=== PATIENT | male | born 1965 | race Caucasian/White ===

== ENCOUNTER 2017-11-10 07:28 | Emergency (ER) | payer OTHER ==
[~2017-11-10] VITALS: Ht 182.9 cm; Wt 113.4 kg
[~2017-11-10 07:28] MED LIST: ASPIRIN EC325 M1 PO; FISH OIL 1,001000 M1 PO; IBUPROFEN; REQUIP PO; SORINE 80 MG TA80 M1 PO; WELLBUTRIN PO
[2017-11-10 07:34] VITALS: BP 114/70
[2017-11-10] MEDS ORDERED: CHOLESTEROL MED (07:38)
[2017-11-10] MEDS ORDERED: HTN MED (07:39)
[2017-11-10] MEDS ORDERED: MEDROLDOSEPACK PO (07:49)
[2017-11-10] MEDS ORDERED: KEFLEX500 M1 PO (07:49)
== END 2017-11-10 07:57 | disposition home or self-care (01) ==
LOC: M.ERS 07:28
DX: L03.114 Cellulitis of left upper limb (principal); L25.9 Unspecified contact dermatitis, unspecified cause; G47.30 Sleep apnea, unspecified; Z90.49 Acquired absence of other specified parts of digestive tract